=== PATIENT | female | born 1980 | race Caucasian/White ===

== ENCOUNTER 2018-03-01 09:38 | Emergency (ER) | payer SELFPAY ==
[2018-03-01 11:01] LABS: ACETAMINOPHEN 0 ug/mL (10-30)
--- NOTE | 2018-03-01 11:27 | EDM.PDOCBH ---
ED HPI GENERAL MEDICAL PROBLEM - General Chief Complaint: Behavioral/Psych Stated Complaint: MENTAL EVAL Time Seen by Provider: 03/01/18 09:48 Source of Information: Reports: Patient, Family, Police History Limitations: Reports: No Limitations - History of Present Illness INITIAL COMMENTS - FREE TEXT/NARRATIVE: The patient was brought in by [facility] deputies for mental health medical clearance and transfer to a psychiatric unit. The patient was just released from [facility]. She was doing good for a few days and then she started to deteriorate. According to family she has not been taking her meds and not attending sessions at [facility]. She has been disconnected, aggressive , and suicidal. I asked her if she feels suicidal and she says "I am now." She does not have a plan. She denies drinking alcohol and taking any drugs. She has no fever, chills, cough, congestion, runny nose, chest pain, shortness of breath, abdominal pain, nausea or vomiting. Onset: Gradual Duration: Day(s): Severity: Moderate Improves with: Reports: None Worsens with: Reports: None Associated Symptoms: Reports: No Other Symptoms - Related Data Allergies Allergy/AdvReac Type Severity Reaction Status Date / Time No Known Allergies Allergy Verified 03/01/18 09:52 Home Meds: Home Meds ALPRAZolam [ALPRAZolam ODT] 0.25 mg PO Q8H PRN 03/01/18 [History] Acamprosate Calcium 666 mg PO TID 03/01/18 [History] Sertraline [Zoloft] 200 mg PO DAILY 03/01/18 [History] Ziprasidone HCl [Geodon] 20 mg PO TID 03/01/18 [History] buPROPion HCl [Zyban] 150 mg PO DAILY 03/01/18 [History] hydrOXYzine pamoate [Hydroxyzine Pamoate] 25 mg PO Q6H PRN 03/01/18 [History] traZODone HCl [Trazodone HCl] 100 mg PO BEDTIME PRN 03/01/18 [History] 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: Psychiatric History: Reports: Bipolar Other Psychiatric History: committals Social & Family History - Tobacco Use Smoking Status *Q: Current Status Unknown ED ROS GENERAL - Review of Systems Review Of Systems: See Below Constitutional: Reports: No Symptoms HEENT: Reports: No Symptoms Respiratory: Reports: No Symptoms Cardiovascular: Reports: No Symptoms Endocrine: Reports: No Symptoms GI/Abdominal: Reports: No Symptoms : Reports: No Symptoms Musculoskeletal: Reports: No Symptoms ED EXAM, BEHAVIORAL HEALTH - Physical Exam Exam: See Below Exam Limited By: No Limitations General Appearance: Alert, No Apparent Distress Ears: Normal External Exam Nose: Normal Inspection Head: Atraumatic, Normocephalic Neck: Normal Inspection Respiratory/Chest: No Respiratory Distress, Lungs Clear, Normal Breath Sounds Cardiovascular: Regular Rate, Rhythm, No Edema, No Murmur GI/Abdominal: Soft, Non-Tender, No Organomegaly, No Mass Back Exam: Normal Inspection Extremities: Normal Inspection COURSE, BEHAVIORAL HEALTH COMP - Course Vital Signs: Last Vital Signs Temp 98.3 F 03/01/18 09:46 Pulse 96 03/01/18 09:46 Resp 19 03/01/18 09:46 BP Pulse Ox 100 03/01/18 09:46 Orders, Labs, Meds: Active Orders 24 hr Category Date Time Status Cardiac Monitoring [RC] . DIRECTED Care 03/01/18 09:59 Active DRUG SCREEN, URINE [URCHEM] Stat Lab 03/01/18 10:35 Ordered Laboratory Tests 03/01/18 03/01/18 03/01/18 Range/Units 10:12 10:12 10:12 WBC 7.20 (3.98-10.04) K/mm3 RBC 4.19 (3.98-5.22) M/mm3 Hgb 13.2 (11.2-15.7) gm/L Hct 38.4 (34.1-44.9) % MCV 91.6 (79.4-94.8) fl MCH 31.5 (25.6-32.2) pg MCHC 34.4 (32.2-35.5) g/dl RDW Std Deviation 40.5 (36.4-46.3) fL Plt Count 302 (182-369) K/mm3 MPV 10.6 (9.4-12.3) fl Neut % (Auto) 68.2 (34.0-71.1) % Lymph % (Auto) 23.6 (19.3-51.7) % [place] % (Auto) 7.4 (4.7-12.5) % Eos % (Auto) 0.4 L (0.7-5.8) Baso % (Auto) 0.3 (0.1-1.2) % Neut # (Auto) 4.91 (1.56-6.13) K/mm3 Lymph # (Auto) 1.70 (1.18-3.74) K/mm3 [place] # (Auto) 0.53 H (0.24-0.36) K/mm3 Eos # (Auto) 0.03 L (0.04-0.36) K/mm3 Baso # (Auto) 0.02 (0.01-0.08) K/mm3 Sodium 142 (136-145) mEq/L Potassium 3.6 (3.5-5.1) mEq/L Chloride 104 (98-107) mEq/L Carbon Dioxide 27 (21-32) mEq/L Anion Gap 14.6 (5-15) BUN 8 (7-18) mg/dL Creatinine 0.9 (0.55-1.02) mg/dL Est Cr Clr Drug Dosing 74.77 mL/min Estimated GFR (MDRD) > 60 (>60) mL/min BUN/Creatinine Ratio 8.9 L (14-18) Glucose 100 (74-106) mg/dL Calcium 9.1 (8.5-10.1) mg/dL Total Bilirubin 0.5 (0.2-1.0) mg/dL AST 14 L (15-37) U/L ALT 39 (14-59) U/L Alkaline Phosphatase 70 (46-116) U/L Total Protein 8.0 (6.4-8.2) g/dl Albumin 4.1 (3.4-5.0) g/dl Globulin 3.9 gm/dL Albumin/Globulin Ratio 1.1 (1-2) TSH 3rd Generation 1.788 (0.358-3.74) uIU/mL HCG, Qual Negative (NEGATIVE) Salicylates (2.8-20) mg/dL Urine Opiates Screen (NEGATIVE) Ur Buprenorphine Scrn (NEGATIVE) Ur Oxycodone Screen (NEGATIVE) Urine Methadone Screen (NEGATIVE) Ur Propoxyphene Screen (NEGATIVE) Acetaminophen 0 L (10-30) ug/mL Ur Barbiturates Screen (NEGATIVE) Ur Tricyclics Screen (NEGATIVE) Ur Phencyclidine Scrn (NEGATIVE) Ur Amphetamine Screen (NEGATIVE) U Methamphetamines Scrn (NEGATIVE) U Benzodiazepines Scrn (NEGATIVE) U Cocaine Metab Screen (NEGATIVE) U Marijuana (THC) Screen (NEGATIVE) Ethyl Alcohol 0.00 (0.00) gm% 03/01/18 03/01/18 Range/Units 10:12 10:35 WBC (3.98-10.04) K/mm3 RBC (3.98-5.22) M/mm3 Hgb (11.2-15.7) gm/L Hct (34.1-44.9) % MCV (79.4-94.8) fl MCH (25.6-32.2) pg MCHC (32.2-35.5) g/dl RDW Std Deviation (36.4-46.3) fL Plt Count (182-369) K/mm3 MPV (9.4-12.3) fl Neut % (Auto) (34.0-71.1) % Lymph % (Auto) (19.3-51.7) % [place] % (Auto) (4.7-12.5) % Eos % (Auto) (0.7-5.8) Baso % (Auto) (0.1-1.2) % Neut # (Auto) (1.56-6.13) K/mm3 Lymph # (Auto) (1.18-3.74) K/mm3 [place] # (Auto) (0.24-0.36) K/mm3 Eos # (Auto) (0.04-0.36) K/mm3 Baso # (Auto) (0.01-0.08) K/mm3 Sodium (136-145) mEq/L Potassium (3.5-5.1) mEq/L Chloride (98-107) mEq/L Carbon Dioxide (21-32) mEq/L Anion Gap (5-15) BUN (7-18) mg/dL Creatinine (0.55-1.02) mg/dL Est Cr Clr Drug Dosing mL/min Estimated GFR (MDRD) (>60) mL/min BUN/Creatinine Ratio (14-18) Glucose (74-106) mg/dL Calcium (8.5-10.1) mg/dL Total Bilirubin (0.2-1.0) mg/dL AST (15-37) U/L ALT (14-59) U/L Alkaline Phosphatase (46-116) U/L Total Protein (6.4-8.2) g/dl Albumin (3.4-5.0) g/dl Globulin gm/dL Albumin/Globulin Ratio (1-2) TSH 3rd Generation (0.358-3.74) uIU/mL HCG, Qual (NEGATIVE) Salicylates 1.9 L (2.8-20) mg/dL Urine Opiates Screen Negative (NEGATIVE) Ur Buprenorphine Scrn Negative (NEGATIVE) Ur Oxycodone Screen Negative (NEGATIVE) Urine Methadone Screen Negative (NEGATIVE) Ur Propoxyphene Screen Negative (NEGATIVE) Acetaminophen (10-30) ug/mL Ur Barbiturates Screen Negative (NEGATIVE) Ur Tricyclics Screen Negative (NEGATIVE) Ur Phencyclidine Scrn Negative (NEGATIVE) Ur Amphetamine Screen Presumptive positive H (NEGATIVE) U Methamphetamines Scrn Presumptive positive H (NEGATIVE) U Benzodiazepines Scrn Negative (NEGATIVE) U Cocaine Metab Screen Negative (NEGATIVE) U Marijuana (THC) Screen Negative (NEGATIVE) Ethyl Alcohol (0.00) gm% Re-Assessment/Re-Exam: I ordered labs. Her CBC and CMP look good. Her HCG is negative. Her acetaminophen and salicylates were normal. Her ETOH was 0. Her urine drug screen was presumptive positive for amphetamines and methamphetamines. I called Dr Chan at [facility] in [place] and he accepted the patient. He said that zoloft can give you a false positive. The patient will be going by [facility] deputy. Departure - Departure Time of Disposition: 12:10 Disposition: DC/Tfer to Psych Hosp/Unit 65 Condition: Good Clinical Impression: Depressive disorder, Suicidal ideation - Discharge Information Referrals: PCP,None [Primary Care Provider] - Forms: ED Department Discharge - My Orders Last 24 Hours: My Active Orders 03/01/18 09:59 Cardiac Monitoring [RC] . DIRECTED 03/01/18 10:35 DRUG SCREEN, URINE [URCHEM] Stat - Assessment/Plan Last 24 Hours: My Active Orders 03/01/18 09:59 Cardiac Monitoring [RC] . DIRECTED 03/01/18 10:35 DRUG SCREEN, URINE [URCHEM] Stat
== END 2018-03-01 12:15 ==
LOC: JD.ED 09:38
DX: F32.9 Major depressive disorder, single episode, unspecified (principal); R45.851 Suicidal ideations; Z79.899 Other long term (current) drug therapy
CPT/HCPCS: 36415; 80053; 80306; 84443; 84703; 85025; 99284; G0480; 99285

== ENCOUNTER 2018-04-01 16:24 | Emergency (ER) | payer BC, OTHER ==
--- NOTE | 2018-04-01 17:43 | EDM.PDOC ---
ED HPI GENERAL MEDICAL PROBLEM - General Chief Complaint: General Stated Complaint: AIDS SCREENING Time Seen by Provider: 04/01/18 16:35 Source of Information: Reports: Patient History Limitations: Reports: No Limitations - History of Present Illness INITIAL COMMENTS - FREE TEXT/NARRATIVE: The patient presents for HIV testing. She had unprotected intercourse over a week ago. She has no symptoms such as fever, chills, cough, or runny nose. She does not have any rash or vaginal discharge. She was not to concerned about other STDs. She has no other complaints. 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: Psychiatric History: Reports: Bipolar Other Psychiatric History: committals Social & Family History - Tobacco Use Smoking Status *Q: Current Every Day Smoker Years of Tobacco use: 20 Packs/Tins Daily: 1 - Caffeine Use Caffeine Use: Reports: Coffee, Soda - Recreational Drug Use Recreational Drug Use: No ED ROS GENERAL - Review of Systems Review Of Systems: See Below Constitutional: Reports: No Symptoms HEENT: Reports: No Symptoms Respiratory: Reports: No Symptoms Cardiovascular: Reports: No Symptoms Endocrine: Reports: No Symptoms GI/Abdominal: Reports: No Symptoms : Reports: No Symptoms Musculoskeletal: Reports: No Symptoms ED EXAM, GENERAL - Physical Exam Exam: See Below Exam Limited By: No Limitations General Appearance: Alert, No Apparent Distress Ears: Normal External Exam Nose: Normal Inspection Head: Atraumatic, Normocephalic Neck: Normal Inspection Respiratory/Chest: No Respiratory Distress, Lungs Clear, Normal Breath Sounds Cardiovascular: Regular Rate, Rhythm, No Edema, No Murmur GI/Abdominal: Soft, Non-Tender, No Organomegaly, No Mass Course - Vital Signs Last Recorded V/S: Last Vital Signs Temp 97.6 F 04/01/18 16:37 Pulse 81 04/01/18 16:37 Resp 20 04/01/18 16:37 BP 120/73 04/01/18 16:37 Pulse Ox 100 04/01/18 16:37 - Orders/Labs/Meds Orders: Active Orders 24 hr Category Date Time Status GC/CHLAMYDIA BY PCR [MOLEC] Stat Lab 04/01/18 17:48 Ordered Labs: Laboratory Tests 04/01/18 Range/Units 17:12 HIV-1 Ab Rapid Screen Negative (NEGATIVE) - Re-Assessments/Exams Free Text/Narrative Re-Assessment/Exam: 04/01/18 17:42 I ordered an HIV test and also a GC by PCR. 04/01/18 18:55 The gonorrhea and chlamydia are not back yet. Lab said that it will take about 90 minutes. I will discharge her and call her the results. Departure - Departure Time of Disposition: 19:00 Disposition: Home, Self-Care 01 Condition: Good Clinical Impression: Concern about STD in female without diagnosis - Discharge Information *PRESCRIPTION DRUG MONITORING PROGRAM REVIEWED*: No *COPY OF PRESCRIPTION DRUG MONITORING REPORT IN PATIENT RAGHAV: No Referrals: PCP,None [Primary Care Provider] - Erica Terrell PA-C [Physician Residential Recycle Driver] - 1 Week Forms: ED Department Discharge Additional Instructions: We will call you with the results. Follow up with Stacy Terrell in 1 week. Please return if you have more concerns. - My Orders Last 24 Hours: My Active Orders 04/01/18 17:48 GC/CHLAMYDIA BY PCR [MOLEC] Stat - Assessment/Plan Last 24 Hours: My Active Orders 04/01/18 17:48 GC/CHLAMYDIA BY PCR [MOLEC] Stat
[2018-04-01 20:28] LABS: C. TRACHOMATIS BY PCR NOT DETECTED; N. GONORRHOEAE BY PCR NOT DETECTED
== END 2018-04-01 18:40 | disposition home or self-care (01) ==
LOC: JD.ED 16:24
DX: Z20.2 Contact with and (suspected) exposure to infections with a predominantly sexual mode of transmission (principal); F17.210 Nicotine dependence, cigarettes, uncomplicated
CPT/HCPCS: 36415; 87491; 87591; 99283; G0433

== ENCOUNTER 2018-12-19 15:15 | Emergency (ER) | payer BC, MEDICAID ==
--- NOTE | 2018-12-19 17:11 | EDM.PDOCBH ---
ED HPI GENERAL MEDICAL PROBLEM - General Chief Complaint: Behavioral/Psych Stated Complaint: LAW ENFORCEMENT Time Seen by Provider: 12/19/18 15:31 Source of Information: Reports: Patient, Police History Limitations: Reports: No Limitations - History of Present Illness INITIAL COMMENTS - FREE TEXT/NARRATIVE: The patient was brought in by [facility] deputy for help. She is under petition and court order to get some help by her dad and . The petition says the patient has been depressed and sitting in the bathroom for hours or another room of the house. When she does come out, she stairs off into space and does not talk to anyone. She has 2 kids and a at home. She denies being suicidal. She does admit to doing this. She is frustrated that she was brought here for "not doing her duties." She has a history of bipolar disorder. She is on seroquel 150mg at night along with toperamate 100mg. She also takes 50mg of seroquel during the day. She admits to not taking her medications the past few days. She denies drinking alcohol. She does admit to smoking marijuana a few days ago. She has no fever, chills, cough , congestion, chest pain, shortness of breath, abdominal pain, nausea or vomiting. 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: Psychiatric History: Reports: Bipolar, Depression Other Psychiatric History: committals Social & Family History - Tobacco Use Smoking Status *Q: Current Every Day Smoker Years of Tobacco use: 23 Packs/Tins Daily: 0.5 - Caffeine Use Caffeine Use: Reports: Coffee, Energy Drinks - Recreational Drug Use Recreational Drug Use: No ED ROS GENERAL - Review of Systems Review Of Systems: See Below Constitutional: Reports: No Symptoms HEENT: Reports: No Symptoms Respiratory: Reports: No Symptoms Cardiovascular: Reports: No Symptoms Endocrine: Reports: No Symptoms GI/Abdominal: Reports: No Symptoms : Reports: No Symptoms Musculoskeletal: Reports: No Symptoms Skin: Reports: No Symptoms ED EXAM, BEHAVIORAL HEALTH - Physical Exam Exam: See Below Exam Limited By: No Limitations General Appearance: Alert, No Apparent Distress Ears: Normal External Exam Nose: Normal Inspection Head: Atraumatic, Normocephalic Neck: Normal Inspection Respiratory/Chest: No Respiratory Distress, Lungs Clear, Normal Breath Sounds Cardiovascular: Regular Rate, Rhythm, No Edema, No Murmur GI/Abdominal: Soft, Non-Tender, No Organomegaly, No Mass Back Exam: Normal Inspection Extremities: Normal Inspection COURSE, BEHAVIORAL HEALTH COMP - Course Vital Signs: Last Vital Signs Temp 98.0 F 12/19/18 15:42 Pulse 99 12/19/18 15:42 Resp 20 12/19/18 15:42 BP 146/92 H 12/19/18 15:42 Pulse Ox 100 12/19/18 15:42 Orders, Labs, Meds: Active Orders 24 hr Category Date Time Status Cardiac Monitoring [RC] . DIRECTED Care 12/19/18 15:49 Active Laboratory Tests 12/19/18 12/19/18 12/19/18 Range/Units 17:00 17:00 17:00 WBC 8.16 (3.98-10.04) K/mm3 RBC 4.58 (3.98-5.22) M/mm3 Hgb 14.0 (11.2-15.7) gm/L Hct 40.7 (34.1-44.9) % MCV 88.9 D (79.4-94.8) fl MCH 30.6 (25.6-32.2) pg MCHC 34.4 (32.2-35.5) g/dl RDW Std Deviation 42.1 (36.4-46.3) fL Plt Count 287 (182-369) K/mm3 MPV 10.6 (9.4-12.3) fl Neut % (Auto) 72.7 H (34.0-71.1) % Lymph % (Auto) 18.3 L (19.3-51.7) % [place] % (Auto) 8.7 (4.7-12.5) % Eos % (Auto) 0.1 L (0.7-5.8) Baso % (Auto) 0.1 (0.1-1.2) % Neut # (Auto) 5.93 (1.56-6.13) K/mm3 Lymph # (Auto) 1.49 (1.18-3.74) K/mm3 [place] # (Auto) 0.71 H (0.24-0.36) K/mm3 Eos # (Auto) 0.01 L (0.04-0.36) K/mm3 Baso # (Auto) 0.01 (0.01-0.08) K/mm3 Sodium 135 L (136-145) mEq/L Potassium 3.7 (3.5-5.1) mEq/L Chloride 100 (98-107) mEq/L Carbon Dioxide 21 (21-32) mEq/L Anion Gap 17.7 H (5-15) BUN 13 (7-18) mg/dL Creatinine 0.8 (0.55-1.02) mg/dL Est Cr Clr Drug Dosing 90.90 mL/min Estimated GFR (MDRD) > 60 (>60) mL/min BUN/Creatinine Ratio 16.3 (14-18) Glucose 93 (74-106) mg/dL Calcium 9.6 (8.5-10.1) mg/dL Total Bilirubin 0.7 (0.2-1.0) mg/dL AST 22 (15-37) U/L ALT 29 (14-59) U/L Alkaline Phosphatase 72 (46-116) U/L Total Protein 8.0 (6.4-8.2) g/dl Albumin 4.4 (3.4-5.0) g/dl Globulin 3.6 gm/dL Albumin/Globulin Ratio 1.2 (1-2) HCG, Qual Negative (NEGATIVE) Salicylates (2.8-20) mg/dL Urine Opiates Screen (MJKTZO=699) Ur Buprenorphine Scrn (CUTOFF=10) Ur Oxycodone Screen (QDS3MN=326) Urine Methadone Screen (RRQWQW=372) Ur Propoxyphene Screen (TKTKOV=112) Acetaminophen 0 L (10-30) ug/mL Ur Barbiturates Screen (OYDYWV=594) Ur Tricyclics Screen (OFFXLC=280) Ur Phencyclidine Scrn (CUTOFF=25) Ur Amphetamine Screen (MHPZVE=777) U Methamphetamines Scrn (YZTSGF=059) U Benzodiazepines Scrn (QRNKYD=366) U Cocaine Metab Screen (KJKLYL=093) U Marijuana (THC) Screen (CUTOFF=50) Ethyl Alcohol 0.00 (0.00) gm% 12/19/18 12/19/18 Range/Units 17:00 17:23 WBC (3.98-10.04) K/mm3 RBC (3.98-5.22) M/mm3 Hgb (11.2-15.7) gm/L Hct (34.1-44.9) % MCV (79.4-94.8) fl MCH (25.6-32.2) pg MCHC (32.2-35.5) g/dl RDW Std Deviation (36.4-46.3) fL Plt Count (182-369) K/mm3 MPV (9.4-12.3) fl Neut % (Auto) (34.0-71.1) % Lymph % (Auto) (19.3-51.7) % [place] % (Auto) (4.7-12.5) % Eos % (Auto) (0.7-5.8) Baso % (Auto) (0.1-1.2) % Neut # (Auto) (1.56-6.13) K/mm3 Lymph # (Auto) (1.18-3.74) K/mm3 [place] # (Auto) (0.24-0.36) K/mm3 Eos # (Auto) (0.04-0.36) K/mm3 Baso # (Auto) (0.01-0.08) K/mm3 Sodium (136-145) mEq/L Potassium (3.5-5.1) mEq/L Chloride (98-107) mEq/L Carbon Dioxide (21-32) mEq/L Anion Gap (5-15) BUN (7-18) mg/dL Creatinine (0.55-1.02) mg/dL Est Cr Clr Drug Dosing mL/min Estimated GFR (MDRD) (>60) mL/min BUN/Creatinine Ratio (14-18) Glucose (74-106) mg/dL Calcium (8.5-10.1) mg/dL Total Bilirubin (0.2-1.0) mg/dL AST (15-37) U/L ALT (14-59) U/L Alkaline Phosphatase (46-116) U/L Total Protein (6.4-8.2) g/dl Albumin (3.4-5.0) g/dl Globulin gm/dL Albumin/Globulin Ratio (1-2) HCG, Qual (NEGATIVE) Salicylates 1.9 L (2.8-20) mg/dL Urine Opiates Screen Negative (TQNNYD=006) Ur Buprenorphine Scrn Negative (CUTOFF=10) Ur Oxycodone Screen Negative (AOO5UD=386) Urine Methadone Screen Negative (ANACOL=598) Ur Propoxyphene Screen Negative (RCOLAK=520) Acetaminophen (10-30) ug/mL Ur Barbiturates Screen Negative (IYUVCN=896) Ur Tricyclics Screen Negative (YKOJND=099) Ur Phencyclidine Scrn Negative (CUTOFF=25) Ur Amphetamine Screen Presumptive positive H (GAIILP=088) U Methamphetamines Scrn Presumptive positive H (HCQXQA=772) U Benzodiazepines Scrn Negative (IXQNCX=368) U Cocaine Metab Screen Negative (GLXSYN=765) U Marijuana (THC) Screen Negative (CUTOFF=50) Ethyl Alcohol (0.00) gm% Re-Assessment/Re-Exam: I ordered labs and a urine drug screen. Her CBC looks good. Her anion gap was elevated at 17.7. Her HCG is negative. Her salicylates and acetaminophen were normal. Her urine drug screen was presumptive positive for amphetamines and methamphetamines. He ETOH was 0. I called [facility] in [place] and talked with Dr Ryan the psychiatrist and he accepted the patient. The patient denied ingesting any meth. She did admit to smoking marijuana a few days ago. Departure - Departure Time of Disposition: 18:20 Disposition: DC/Tfer to Psych Hosp/Unit 65 Condition: Fair Clinical Impression: Bipolar disorder Qualifiers: Active/Remission status: remission status unspecified Qualified Code(s): F31.9 - Bipolar disorder, unspecified Depression Qualifiers: Depression Type: other depression Qualified Code(s): F32.89 - Other specified depressive episodes - Discharge Information Referrals: PCP,None [Primary Care Provider] - Forms: ED Department Discharge - My Orders Last 24 Hours: My Active Orders 12/19/18 15:49 Cardiac Monitoring [RC] . DIRECTED - Assessment/Plan Last 24 Hours: My Active Orders 12/19/18 15:49 Cardiac Monitoring [RC] . DIRECTED
[2018-12-19 17:34] LABS: ACETAMINOPHEN 0 ug/mL (10-30)
== END 2018-12-19 18:30 ==
LOC: JD.ED 15:15
DX: F31.9 Bipolar disorder, unspecified (principal); F17.210 Nicotine dependence, cigarettes, uncomplicated; Z79.899 Other long term (current) drug therapy
CPT/HCPCS: 36415; 80053; 80306; 84703; 85025; 99284; G0480; 99283

== ENCOUNTER 2023-12-02 16:34 | Emergency (ER) | payer MEDICAID ==
[2023-12-02] MEDS: Acetaminophen/Codeine 300-30 MG Tab PO ONE (19:09)
== END 2023-12-02 21:15 | disposition home or self-care (01) ==
LOC: EDUNIT# → JD.ED 16:34 → EDBD 16:34 → JD.ED 21:15
DX: M25.512 Pain in left shoulder (principal); Z79.899 Other long term (current) drug therapy
CPT/HCPCS: 73030; 99283; A9270

== ENCOUNTER 2023-12-18 20:21 | Emergency (ER) | payer MEDICAID ==
[2023-12-18] MEDS: Lidocaine 1% 10 ML MDV INJECT ONE (21:30)
[2023-12-18] MEDS: Bacitracin Oint 15 GM Tube TOP ONE (22:16)
== END 2023-12-18 22:15 | disposition home or self-care (01) ==
LOC: JD.ED 20:21
DX: S91.311A Laceration without foreign body, right foot, initial encounter (principal); F17.210 Nicotine dependence, cigarettes, uncomplicated; Z79.899 Other long term (current) drug therapy; W25.XXXA Contact with sharp glass, initial encounter
CPT/HCPCS: 12001; 73610-26-RT; 73610-RT; 73630-26-RT; 73630-RT; 99283; J3490

== ENCOUNTER 2024-11-15 05:57 | Emergency (ER) | payer MEDICAID ==
[2024-11-15] MEDS: cefTRIAXone 1 GM, Lidocaine 1% 2.1 ML IM ONE (06:39)
[2024-11-15] MEDS: Azithromycin 250 MG Tab PO ONE (06:39)
[2024-11-15 08:08] LABS: C. TRACHOMATIS BY PCR NOT DETECTED; N. GONORRHOEAE BY PCR NOT DETECTED
[2024-11-15] MEDS: Fluconazole 150 MG Tab PO ONE (08:51)
== END 2024-11-15 08:54 | disposition home or self-care (01) ==
LOC: JD.ED 05:57
DX: B37.31 Acute candidiasis of vulva and vagina (principal); Z79.899 Other long term (current) drug therapy
CPT/HCPCS: 81515; 87491; 87591; 96372; 99283; A9270; J0696; J2003